=== PATIENT | male | born 1975 | race Caucasian/White ===

== ENCOUNTER 2017-07-15 13:12 | Emergency (ER) | payer MEDICAID ==
--- NOTE | ~2017-07-15 | ER ---
PATIENT'S NAME: DANGELO OLIVEIRA [facility] AGE: 42 Y [address] ROOM: [place] [id number] LOCATION: ED ADMIT DATE: 07/15/2017 ER/Outpatient Report DISCHARGE DATE: 07/15/2017 FAMILY PHYSICIAN: Fanny Haywood APRN ATTENDING PHYSICIAN: Mahamed Lopez CHIEF COMPLAINT: Mild confusion, tired, hand tingling, probable MS relapsed. HISTORY OF PRESENT ILLNESS: Mr. Oliveira presents for evaluation of the above symptoms. They started over a week ago. His finally convinced him to come to the ER today for evaluation. He follows exclusively with the neurology team in [place] for this issue. He has not had his MS flare for several years, but states this feels like his MS flares with the tingling in his hands which is worse than it usually is. There have been no significant changes since the onset about a week ago. He just finally came in for evaluation and treatment today. PAST MEDICAL HISTORY: Documented on the record and reviewed by me. SOCIAL HISTORY: Documented on the record and reviewed by me. MEDICATIONS: Documented on the record and reviewed by me. ALLERGIES: DOCUMENTED ON THE RECORD AND REVIEWED BY ME. REVIEW OF SYSTEMS: All systems reviewed and negative except as noted in the HPI. PHYSICAL EXAMINATION: VITAL SIGNS: Blood pressure 127/88, pulse 87, respiratory rate is 20, temperature 96.5, SpO2 is 94% on room air. Pain is rated 0/10. GENERAL: Age-appropriate male. Upright on exam table. Tired but no apparent pain or distress. NEUROLOGIC: Awake and alert. GCS is 15. No focal deficits. No asymmetry detectable on exam. The patient's complaints are all subjective. HEENT: Normocephalic, atraumatic. Eyes are PERRL. Oropharynx is clear. NECK: Supple. Trachea is midline. CHEST/HEART: Regular rate and rhythm with no murmurs. LUNGS: Clear to auscultation bilateral. ABDOMEN: Soft, nontender. PATIENT'S NAME: DANGELO OLIVEIRA [facility] AGE: 42 Y [address] ROOM: [place] [id number] LOCATION: [facility] ADMIT DATE: 07/15/2017 ER/Outpatient Report DISCHARGE DATE: 07/15/2017 FAMILY PHYSICIAN: Fanny Haywood APRN ATTENDING PHYSICIAN: Mahamed Lopez BACK: Normal to inspection. EXTREMITIES: Warm, well formed, well perfused. SKIN: Clean, dry, and intact. LABS AND X-RAYS: MRI of the brain is concerning for active lesion of MS. CBC, CMS, and thyroid studies do not reveal any significant abnormalities other than a hemoglobin of 17.9 and a mild transaminitis with AST of 46 and ALT of 110. IMPRESSION: Likely active multiple sclerosis. EMERGENCY DEPARTMENT COURSE: The patient was seen and evaluated as above. No alternative cause. Discussed case with Josselyn, manufacturing maintenance manager nurse, at [facility]. She recommended MRI prior to initiation of steroids. MRI is concerning for acute lesion, though no comparison studies available. We will try to verify that and we will start the patient on high-dose methylprednisolone today and have him follow up with his neurology team tomorrow. I do not think he needs to be hospitalized at this time. MD SHAW JOSE/laura /[id number] d: 07/16/17 1436 t: 07/21/17 0640, OUTPATIENT REPORT
[2017-07-15 14:23] LABS: BASOPHIL % 0.6 %; EOSINOPHIL # 0.1 K/uL (0.0-0.5); EOSINOPHIL % 1.3 %; HEMOGLOBIN 17.9 g/dL (12.0-17.0); IMMATURE GRANULOCYTE % 0.4 %; LYMPHOCYTE # 2.9 K/uL (0.8-4.0); LYMPHOCYTE % 39.9 %; MCHC 34.4 gm/dL (32.0-36.5); MCV 87.2 fl (83.0-98.0); MONOCYTE # 0.3 K/uL (0.0-1.0); MONOCYTE % 4.3 %; MPV 9.7 fl (9.4-12.4); NEUTROPHIL # (ANC) 3.9 K/uL (1.4-9.0); NEUTROPHIL % 53.5 %; NRBC % 0.4 /100WBC (0-0.00); PLATELET COUNT 171 K/uL (150-450); RBC 5.96 M/uL (4.00-6.00); RDW-CV 13.7 % (11.9-14.6); WBC 7.2 K/uL (4.0-11.0)
[2017-07-15 14:43] LABS: ALBUMIN 4.2 gm/dL (3.5-5.0); ANION GAP 9.2 (10.0-19.0); CALCIUM 9.1 mg/dL (8.5-10.5); CREATININE 1.2 mg/dL (0.6-1.3); POTASSIUM 4.2 mMol/L (3.7-5.1); TOTAL BILIRUBIN 0.6 mg/dL (0.0-1.5); TOTAL PROTEIN 7.9 g/dL (6.0-8.4)
== END 2017-07-15 18:37 | disposition disaster alternative care site (69) ==
LOC: GMED 13:12
PROVIDERS: Emergency Medicine
DX: R20.0 Anesthesia of skin (principal); R53.83 Other fatigue; R41.0 Disorientation, unspecified; Z79.899 Other long term (current) drug therapy